=== PATIENT | female | born 1995 | race Caucasian/White ===

== ENCOUNTER 2018-08-23 05:32 | Emergency (ER) | payer OTHER ==
[2018-08-23 05:50] VITALS: TEMP 98.6
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
[2018-08-23] MEDS ORDERED: LIDOCAINE 1% INJ 10MG/ML (20 ML MDV) SQ ONE (07:18)
[2018-08-23] MEDS ORDERED: TOPICAL SKIN ADHESIVE 1 EACH AMP TOPICAL ONE (07:18)
[2018-08-23] MEDS ORDERED: ceFAZolin 1,000 MG VIAL IM STA (07:24)
--- NOTE | 2018-08-23 07:32 | XR ---
EXAM: XR Right Hand Complete, 3 or More Views CLINICAL HISTORY: lacerations/foreign bodies TECHNIQUE: Frontal, lateral and oblique views of the right hand. COMPARISON: No relevant prior studies available. FINDINGS: Bones/joints: Suspect nondisplaced fracture at the radial tip of second finger, best seen on image 1. No dislocation. Soft tissues: No radiopaque foreign object. Associated soft tissue swelling. IMPRESSION: 1. Suspect tuft fracture of second finger. 2. No radiopaque foreign object.
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
[2018-08-23 08:49] VITALS: BP 114/84; PULSE 69; RESP 13
--- NOTE | 2018-08-24 05:19 | CDI ---
Documentation Clarification OP Dear Yvon THEODORE, PAC Please provide open fracture location. Thank you, Emma Pearson Care Management Coordinator If you have any questions, please contact Application Support Manager at [phone] right second digit, distal phalanx, radial aspect MTDD
== END 2018-08-23 08:52 | disposition home or self-care (01) ==
LOC: EC 05:32
DX: S62.630A Displaced fracture of distal phalanx of right index finger, initial encounter for closed fracture (principal); S61.212A Laceration without foreign body of right middle finger without damage to nail, initial encounter; S01.01XA Laceration without foreign body of scalp, initial encounter; F17.200 Nicotine dependence, unspecified, uncomplicated; Z79.1 Long term (current) use of non-steroidal anti-inflammatories (NSAID); Y04.2XXA Assault by strike against or bumped into by another person, initial encounter; Y92.810 Car as the place of occurrence of the external cause
CPT/HCPCS: 99284; 12002; 96372; 73130; 72125; 70450; J0690; J2001